=== PATIENT | male | born 1990 | race African-American/Black ===

== ENCOUNTER 2017-04-10 12:35 | Emergency (ER) | payer OTHER ==
[~2017-04-10] VITALS: Ht 167.6 cm; Wt 79.5 kg
[2017-04-10 12:39] VITALS: Ht 167.6 cm; Wt 79.5 kg
[2017-04-10] MEDS ORDERED: DIPHTH/TET/ACEL PERTUSS (ADULT) 0.5 ML VIAL IM* ONE (14:00)
--- NOTE | 2017-04-10 14:22 | RADRPT ---
PROCEDURE: XR Left Foot CLINICAL INDICATION: Trauma TECHNIQUE: AP, oblique, and lateral radiographs were submitted. COMPARISON: None FINDINGS: Osseous structures: appear well mineralized and intact with no fracture or destructive process iden tified. Joint spaces: are well maintained, with no significant spurring, erosion or joint effusion evident. Soft tissues: appear unremarkable. IMPRESSION: Unremarkable left foot. Physician Davidson Date Time Electronically viewed and signed by Physician Davidson on 04/10/2017 14:22 /
--- NOTE | 2017-04-10 14:26 | RADRPT ---
PROCEDURE: US Abdomen Retroperitoneum limited. CLINICAL INDICATION: Trauma TECHNIQUE: Multiple real-time longitudinal and transverse images were acquired of the patient's ab domen and retroperitoneum utilizing a curved array transducer. COMPARISON: None FINDINGS: Liver: The liver appears normal in size and intact with no focal lesion. Gallbladder: The gallbladder is moderately distended and appears normal without cholelithiasis or ga llbladder wall thickening. Bile ducts: There is no significant intra or extrahepatic bile duct dilatation. No choledocholiths a re seen within the visualized portions. Pancreas: The visualized pancreas appears intact. Spleen: The spleen is normal in size and appears intact. Adrenals: No adrenal mass is evident. Kidneys: Both kidneys appear intact. The right kidney is somewhat small measuring 9.2 cm in length while the left kidney measures 10.5 cm in length. No mass, pathological calcification, or hydronephr osis is evident. Peritoneum: There is no free intraperitoneal fluid Aorta: No focal dilatation of the abdominal aorta is evident. IMPRESSION: 1. There is no free intraperitoneal fluid. 2. The liver, gallbladder, pancreas, spleen, and kidneys appear grossly unremarkable. Physician Davidson Date Time Electronically viewed and signed by Physician Davidson on 04/10/2017 14:26 /
--- NOTE | 2017-04-10 14:26 | RADRPT ---
PROCEDURE: XR Left Ankle CLINICAL INDICATION: Trauma TECHNIQUE: Standard 3 view radiographs were submitted. COMPARISON: None FINDINGS: Osseous structures: Well mineralized and intact with no fracture or destructive process identified. Joint spaces: Well maintained with no significant erosions or spurring evident. Soft tissues: Appear unremarkable. IMPRESSION: Unremarkable left ankle. Physician Davidson Date Time Electronically viewed and signed by Jossy Beaulieu Physician on 04/10/2017 14:26 /
[2017-04-10 14:29] LABS: URINE BLOOD (Dip) POC Negative (NEGATIVE)
[2017-04-10] MEDS ORDERED: IBUP-1542 PO (14:32)
--- NOTE | 2017-04-10 14:43 | ERD ---
ER Documentation Chief Complaint Date/Time DATE: 04/10/17 TIME: 14:34 Chief Complaint ABDOMINAL PAIN, LT KNEE PAIN, LT FOOT, WORK INJURY AROUND 1220 TODAY HPI This 26-year-old male works for [employer]. He is here for an injury at work today and complains of abdominal pain, right ankle abrasion and left ankle pain. Patient got caught between a tug cart and a trailer type support device when the was . He was crushed the right abdominal area and sustained an injury to his right ankle with an abrasion and left ankle pain after removing himself from between the vehicle. Patient denies any hematuria ROS All systems reviewed and are negative except as per history of present illness. Medications Home Meds Active Scripts Ibuprofen* (Motrin*) 600 Mg Tab, 600 MG PO Q6, #20 TAB Prov:ANISHA DODGE MD 04/10/17 Allergies Allergies: Coded Allergies: No Known Allergy (Unverified , 04/10/17) PMhx/Soc Medical and Surgical Hx: pt denies Medical Hx, pt denies Surgical Hx Hx Alcohol Use: No Hx Substance Use: No Hx Tobacco Use: No Smoking Status: Never smoker Physical Exam Vitals Vital Signs Date Time Temp Pulse Resp B/P Pulse Ox O2 Delivery O2 Flow Rate FiO2 04/10/17 12:39 98.6 70 20 133/79 98 Physical Exam Const: [] Letter, [id number] Head: Atraumatic Eyes: Normal Conjunctiva ENT: Normal External Ears, Nose and Mouth. Neck: Full range of motion..~ No meningismus. Resp: Clear to auscultation bilaterally Cardio: Regular rate and rhythm, no murmurs Abd: Soft, non tender, non distended. Normal bowel sounds. Minimal abdominal tenderness without rebound, masses, skin changes or ecchymosis. Skin: No petechiae or rashes. There is approximately 3 x 4 mm abrasion on the right Achilles tendon area. There is no erythema, bleeding. There is no restricted range of motion weakness or deficits. Back: No midline or flank tenderness Ext: No cyanosis, or edema. There is tenderness over the dorsum of the left ankle with mild swelling. Is no deformities, restricted range of motion weakness. Neur: Awake and alert Psych: Normal Mood and Affect Results 24 hrs Current Medications Medications (Trade) Dose Ordered Sig/Jonny Route PRN Reason Start Time Stop Time Status Last Admin Dose Admin Diphtheria/ Tetanus/Acell Pertussis (Adacel) 0.5 ml ONCE ONCE IM* 04/10/17 14:00 04/10/17 14:01 DC 04/10/17 14:20 Procedures/MDM Limited abdominal ultrasound FAST exam shows no evidence of fluid or signs of trauma. X-ray left ankle 3V Interpreted by me: Bones: [No fracture] Joints: No dislocation. Impression abnormal left ankle x-ray X-ray left foot 3V Interpreted by me: Bones: [No fracture] Joints: [No dislocation] Foreign body: [None] impression-normal left foot x-ray Patient was placed in left ankle Demetrio bandage administered crutches with crutch training. Patient presents with abdominal contusion without signs or symptoms of bleeding , significant intra-abdominal trauma, abrasion to his right ankle and left ankle sprain. Patient is given a tetanus booster. Patient will referred to local occupational medicine clinic for follow-up and chain of custody drug screen per employer protocol. Patient shows no signs or symptoms of fracture, dislocation, abdominal trauma, head injury, additional complications related to his work injury today. Patient will be discharged home with instructions for desk duty or limited walking instructions for recheck in the next 2-3 days with occupational medicine clinic of provider for adjustment of work restrictions.. 18. Subjective complaints-abdominal pain, right ankle abrasion and left ankle pain after getting caught between a cart in a trailer to a trailer was unhinged from the cart. Patient works for [employer] 19. Objective findings-abrasion on the right Achilles tendon area without erythema, bleeding. Tenderness over the dorsum of the left ankle minimal abdominal tenderness without deformities, ecchymosis. 19 B. X-ray and laboratory results-fasting abdominal ultrasound negative. Left ankle x-ray negative for fracture, dislocation. Left foot x- ray negative for fracture dislocation. 20. Diagnosis-blunt abdominal trauma without identifiable complications, right ankle abrasion, left ankle sprain. 21. Findings and diagnosis consistent with patient's account of injury and onset?-Yes 22. Conditions that will impede or delay the patient's recovery? None 23. Treatment rendered-exam history x-ray ultrasound. Patient was given crutches and left ankle Demetrio bandage. Patient was given tetanus booster as well for Further treatment [id number] with occupational medicine clinic of provider for recheck and adjustment of work restrictions 24. Patient hospitalized?-Not applicable 25. Work status- Able to perform usual work-no Patient can return on-April 11, 2017 Restrictions-desk duty only, limited walking. Departure Diagnosis: Primary Impression: Abdominal trauma Encounter type: initial encounter Qualified Code: S39.91XA - Abdominal trauma, initial encounter Additional Impressions: Ankle sprain Encounter type: initial encounter Involved ligament of ankle: unspecified ligament Laterality: left Qualified Code: S93.402A - Sprain of left ankle, unspecified ligament, initial encounter Abrasion Condition: Stable Patient Instructions: Abdominal Trauma, Blunt (Benign), Abrasion, Sprain, Ankle , With X-Ray Additional Instructions: All examinations normal today. Recheck with occupational medicine clinic for recheck and work restrictions or for new or worsening symptoms have not fevers, vomiting, blood, new symptoms. ANISHA DODGE MD Apr 10, 2017 14:43
== END 2017-04-10 15:05 | disposition home or self-care (01) ==
LOC: FTE 12:35
DX: S39.91XA Unspecified injury of abdomen, initial encounter (principal); S93.402A Sprain of unspecified ligament of left ankle, initial encounter; S90.511A Abrasion, right ankle, initial encounter; W23.1XXA Caught, crushed, jammed, or pinched between stationary objects, initial encounter; Y92.89 Other specified places as the place of occurrence of the external cause; Z23 Encounter for immunization
CPT/HCPCS: 73610; 76705; 81003; 90471; 90715